=== PATIENT | female | born 1970 | race Asian ===

== ENCOUNTER 2022-01-14 10:41 | Day surgery (SDC) | payer OTHER ==
[~2022-01-14] VITALS: Ht 152.4 cm; Wt 72.6 kg
[2022-01-14] MEDS ORDERED: LIDOCAINE 2% 100 MG/5 ML UJET TP ONE (13:29)
[2022-01-14] MEDS ORDERED: MIDAZOLAM 2 MG/2 ML VIAL ONE (13:29)
[2022-01-14] MEDS ORDERED: fentaNYL citrate 0.05 MG/ML VIAL ONE (13:29)
[2022-01-14] MEDS ORDERED: SIMETHICONE 40 MG/0.6 ML ONE (14:25)
[2022-01-14] MEDS ORDERED: MIDAZOLAM 2 MG/2 ML VIAL IVP ONE (14:35)
[2022-01-14] MEDS ORDERED: fentaNYL citrate 0.05 MG/ML VIAL IVP ONE (14:35)
== END 2022-01-14 15:02 | disposition home or self-care (01) ==
LOC: MMU 10:41 → MDS 10:41
PROVIDERS: ATTEND Internal Medicine Gastroenterology
DX: Z12.11 Encounter for screening for malignant neoplasm of colon (principal); K29.70 Gastritis, unspecified, without bleeding; K63.5 Polyp of colon; K64.9 Unspecified hemorrhoids; R13.10 Dysphagia, unspecified; K21.9 Gastro-esophageal reflux disease without esophagitis; I10 Essential (primary) hypertension; E11.9 Type 2 diabetes mellitus without complications; J45.909 Unspecified asthma, uncomplicated; M19.90 Unspecified osteoarthritis, unspecified site; Z79.899 Other long term (current) drug therapy; Z20.822 Contact with and (suspected) exposure to COVID-19
CPT/HCPCS: 36415; 43239; 45385; 86677; 87426; J2250; J3010